=== PATIENT | female | born 2000 | race American Indian/Alaskan Native ===

== ENCOUNTER 2021-08-14 20:45 | Emergency (ER) | payer SELFPAY | END 2021-08-15 09:28 | disposition left against medical advice (07) | LOC: ED 20:45 | DX: Z00.00 Encounter for general adult medical examination without abnormal findings (principal); Z53.21 Procedure and treatment not carried out due to patient leaving prior to being seen by health care provider ==

== ENCOUNTER 2022-01-23 19:00 | Emergency (ER) | payer SELFPAY ==
[2022-01-23 19:17] VITALS: BP 129/78
== END 2022-01-24 00:46 | disposition home or self-care (01) ==
LOC: ED 19:00
DX: R43.9 Unspecified disturbances of smell and taste (principal); Z53.21 Procedure and treatment not carried out due to patient leaving prior to being seen by health care provider